=== PATIENT | male | born 1995 | race Caucasian/White ===

== ENCOUNTER 2020-04-08 17:20 | Emergency (ER) | payer SELFPAY ==
[~2020-04-08] VITALS: Ht 170.2 cm; Wt 60.0 kg
--- NOTE | 2020-04-08 17:21 | NUR ---
CLEANER AND POLISHER: PER [facility] PD WHO BROUGHT PT IN, PT IS UNDER CONSERVATORSHIP WITH [facility] SO HE CANNOT MAKE DECISIONS ON HIS OWN AND HAS A HX OF ESCAPING FROM MENTAL HEALTH FACILITIES. CLEANER AND POLISHER SPOKE WITH INVENTORY CONTROL ANALYST MAKENZIE GOMEZ (c) [phone] REGARDING PATIENT AND ARRANGING TRANSPORTATION. PER DET. GOMEZ HE IS ATTEMPTING TO ARRANGE PRIORITY TRANSPORT FOR PT TOMORROW MORNING. HE WILL KEEP US POSTED OF ARRANGEMENTS.
--- NOTE | 2020-04-08 17:40 | NUR ---
THIS IS A 24 YO M [facility] OFFICE. PER PD, PT IS A MISSING PERSON IN [facility]. [facility] HAS CONSERVATIVESHIP OF PT. PT HAS ELOPED FROM MULTIPLE MENTAL HEALTH FACILITIES. DIRECTOR CORPORATE COMMUNICATIONS MAKENZIE GOMEZ [phone] IS ARRANGING TRANSPORT TO BRING PT BACK TO [facility] FROM THIS FACILITY. PT HAS NO COMPLAINTS AT THIS TIME. HX: SCHITZOPHRENIA. BELONGINGS REMOVED FROM ROOM AND PLACED IN SAFE KEEPING. GARAGE DOORS DOWN, SITTER OUTSIDE ROOM FOR SAFETY. PT AMBULATED TO THE BR W/ A STEADY GAIT, PT URINATED IN TOILET AND TRIED TO SCOOP SAMPLE OUT, PT EDUCATED ON PROPER TECHNIQUE FOR URINE COLLECTION. PT RESTING ON GURNEY, RESP EVEN AND UNLABORED, HOLLIE.
--- NOTE | 2020-04-08 17:48 | NUR ---
LAB IN ROOM.
--- NOTE | 2020-04-08 17:53 | NUR ---
PT REQUESTING IMMEDIATE SHOWER. PT PROVIDED URINAL FOR SAMPLE. INFORMED IT IS THE LAST TEST WE NEED BEFORE WE CAN SET HIM UP FOR A SHOWER.
[2020-04-08 17:55] LABS: BASOPHILS # (AUTO) 0.01 x10^3/uL (0-0.1); BASOPHILS % (AUTO) 0 % (0-1); EOSINOPHILS # (AUTO) 0.07 x10^3/uL (0-0.4); EOSINOPHILS % (AUTO) 1 % (1-7); LYMPHOCYTES # (AUTO) 1.91 x10^3/uL (1-3.4); LYMPHOCYTES % (AUTO) 15 % (22-44); MD NO; MEAN CORPUSCULAR HEMOGLOBIN 29.8 pg (27.5-34.5); MEAN CORPUSCULAR HGB CONC 33.6 g/dL (33.2-36.2); MEAN CORPUSCULAR VOLUME 88.6 fL (81-97); MEAN PLATELET VOLUME 6.7 fL (7.4-10.4); MONOCYTES # (AUTO) 0.85 x10^3/uL (0.2-0.8); MONOCYTES % (AUTO) 7 % (2-9); NEUTROPHILS # (AUTO) 9.69 x10^3/uL (1.8-6.8); NEUTROPHILS % (AUTO) 77 % (42-75); PLATELET COUNT 311 x10^3/uL (130-400); RED BLOOD COUNT 4.97 x10^6/uL (4.38-5.82)
--- NOTE | 2020-04-08 18:03 | NUR ---
URINE COLLECTED AND SENT TO LAB.
[2020-04-08 18:04] LABS: ANION GAP 6 mmol/L (5-15); CALCIUM 8.9 mg/dL (8.5-10.1); CHLORIDE 109 mmol/L (98-107); CREATININE 0.93 mg/dL (0.7-1.3)
[2020-04-08 18:05] LABS: ALBUMIN 3.8 g/dL (3.4-5.0)
--- NOTE | 2020-04-08 18:05 | NUR ---
UPDATED ON APPEARANCE OF PTS URINE (CLOUDY) AND WHITE COUNT, OK TO ADD ON UA.
[2020-04-08 18:06] LABS: SALICYLATE LEVEL < 1.7 mg/dL (2.8-20.0)
--- NOTE | 2020-04-08 18:07 | NUR ---
PT. WAS INCREADIBLY IRRITATED AND RUDE.
[2020-04-08 18:25] LABS: AMPHETAMINE SCREEN, URINE Positive (Negative); BARBITURATE SCREEN, URINE Negative (Negative); CANNABINOID SCREEN, URINE Negative (Negative); COCAINE SCREEN, URINE Negative (Negative); METHADONE SCREEN, URINE Negative (Negative)
[2020-04-08 18:27] LABS: BENZODIAZEPINE SCREEN, URINE Negative (Negative); OPIATE SCREEN, URINE Negative (Negative)
--- NOTE | 2020-04-08 18:35 | NUR ---
PT BECOMING INCREASINGLY AGITATED, YELLING AND DEMANDING SHOWER STATING THAT THIS IS TAKING TO LONG AND ASKING WHEN HE WILL BE EVALUATED. ED PROCESS EXPLAINED TO PT. PT EDUCATED THAT WE DO NOT HAVE THE STAFF AVAILABLE AND IT WOULD BE A FEW HOURS BEFORE HE IS ABLE TO SHOWER. SECURITY ARRIVED AND TALKED PT BACK O[facility]O [facility]. ASKED PT IF HE WOULD LIKE MEDICATION FOR ANXIETY. PT DENIES. PT REQUESTING LIGHTS OFF AND PILLOW. REQUESTED PROVIDED. PT RESTING ON [facility] W/ SITTER OUTSIDE ROOM AND GARAGE DOORS DOWN FOR SAFETY.
--- NOTE | 2020-04-08 18:58 | NUR ---
LAB CALLED TO INFORM THEM OF UA ADD ON.
[2020-04-08] MEDS ORDERED: LORazepam 1MG TABLET ONE (19:00)
[2020-04-08] MEDS ORDERED: LORazepam 1MG TABLET PO ONE (19:00)
[2020-04-08 19:08] LABS: MICROSCOPIC INDICATED
--- NOTE | 2020-04-08 19:19 | NUR ---
FIRST CONTACT WITH PT. HE STATES HE DOES NOT WANT TO BE HERE. HE IS FRUSTRATED WITH OUR PROCESSES AND VOICES HIS DISAPPROVAL THROUGH YELLING AND CRYING. I ENCOURAGED PT TO KEEP HIS VOICE DOWN AND AFTER TALKING WITH HIM AT LENGTH ABOUT THE FACT THAT HE WILL BE HERE ALL NIGHT, HE AGREED. PT IS VERY CONCERNED THAT HE NEEDS A SHOWER AND I AGREED TO ARRANGE ONE FOR HIM. PT RELUCTANTLY AGREEABLE. PT PROVIDED ATIVAN AND A MEAL.
--- NOTE | 2020-04-08 20:55 | NUR ---
THROUGHPUT RN: PACKET SENT TO [facility]. CONFIRMED WITH NOVA IN INTAKE THAT HE RECEIVED ALL REQUIRED INFO. PER NOVA, THEY ARE CUREENTLY AT COMPACITY AND WILL NOT BE ACCEPTING ANY PTS TONIGHT. CALL PLACED TO [facility], CIVIL DIVISION COMMANDER DEPUTY SHERIFF STATES THEY WILL DECLINE S/T SELF-PAY.
--- NOTE | 2020-04-08 23:17 | NUR ---
PT RESTING ON GURNEY, RESPIRATIONS EVEN AND UNLABORED. SITTER AT DOORWAY FOR FREQUENT CHECKS.
--- NOTE | 2020-04-09 01:00 | NUR ---
REPORT TO JORDAN REYES
--- NOTE | 2020-04-09 02:25 | NUR ---
pt resting in bed, with pt room si secure with sitter at pt door. pt has no needs at this time, staff writer will continue to monitor pt.
--- NOTE | 2020-04-09 03:42 | NUR ---
pt requested milk and juice. pt was provided both.
--- NOTE | 2020-04-09 04:48 | NUR ---
pt resting in bed, with pt room si secure with sitter at pt door. pt has no needs at this time, investigative writer will continue to monitor pt.
--- NOTE | 2020-04-09 07:24 | NUR ---
PT RESTING CALMLY IN BED AT THIS TIME. NO STATED NEEDS. SITTER AT DOOR.
--- NOTE | 2020-04-09 08:46 | NUR ---
PT GIVEN AM MEAL TRAY. PT ABLE TO AMBULATE STEADILY TO BATHROOM. PT UPSET ABOUT CURRENT PLAN OF GOING BACK TO [facility]. PT STATED HE IS NO LONGER A MISSING PERSON AND ASKING THIS RN TO TELL THE OFFICERS THERE HE IS NO LONGER MISSING. PT MADE AWARE, HIS TRANSPORT IS ALREADY BEING ARRAINGED, THAT PERHAPS THE PSYCH BEHAVIOR ANALYST WHO WILL BE IN LATER TODAY MAY BE ABLE TO CLARIFY THIS SITUATION. SITTER AT DOOR FOR OBS. WILL CONTINUE TO MONITOR.
[2020-04-09 08:56] VITALS: BP 122/85
--- NOTE | 2020-04-09 09:14 | NUR ---
CHART SNATCHER: PT RAN AROUND ED DEPARTMENT, AND OUT THE DOOR.
--- NOTE | 2020-04-09 09:21 | NUR ---
PT HAS RAN OUT OF EMERGENCY DEPARTMENT IN [facility]. MARYANAD CALLED AND GIVEN PT INFO. STATED THEY WILL SEND AN OFFICER TO LOOK FOR PT AND BRING HIM BACK.
== END 2020-04-09 09:49 ==
LOC: ED 18:54
DX: F20.89 Other schizophrenia (principal); F15.10 Other stimulant abuse, uncomplicated; D72.829 Elevated white blood cell count, unspecified
CPT/HCPCS: 36415; 80048; 80307; 81001; 82040; 85025; 99284

== ENCOUNTER 2020-10-17 11:39 | Emergency (ER) | payer MEDICAID ==
[~2020-10-17] VITALS: Ht 167.6 cm; Wt 66.2 kg
[2020-10-17 11:53] VITALS: BP 130/80
--- NOTE | 2020-10-17 12:20 | NUR ---
TASK RN: PT AMBULATORY TO ROOM 16 W/ C/O NECK PAIN AND FEELING "GROSS STUFF" IN HIS HEAD AND THAT HIS NECK CRACKS. PT NOTED TO BE ANXIOUS. PT RESTING ON [place]. HOLLIE. MONITORS APPLIED. PT REQUESTING A DR SEE HIM NOW. EDUCATED ON THE ED PROCESS. PT VERBALIZES UNDERSTANDING.
--- NOTE | 2020-10-17 12:23 | NUR ---
TASK RN: REPORT GIVEN TO JORDAN BARKER.
--- NOTE | 2020-10-17 12:40 | NUR ---
PT DID NOT WANT TO STAY AND BE SEEN. WAS FOUND IN ANOTHER ROOM AND ELOPED BEFORE DISCHARGE. HE WAS AMBULATORY WITH A STABLE GAIT.
== END 2020-10-17 12:42 | disposition left against medical advice (07) ==
LOC: ED 12:15
DX: F20.1 Disorganized schizophrenia (principal); M54.2 Cervicalgia; F17.200 Nicotine dependence, unspecified, uncomplicated
CPT/HCPCS: 99281

== ENCOUNTER 2020-11-04 17:28 | Emergency (ER) | payer MEDICAID ==
[~2020-11-04] VITALS: Ht 167.6 cm; Wt 64.5 kg
[2020-11-04 17:32] VITALS: BP 110/83
--- NOTE | 2020-11-04 17:57 | NUR ---
PT STATES HE'S SPINE IS MOVING TOO MUCH, STATES HE NEEDS PILLS TO CALM DOWN. PT AMITS TO METH USE YESTERDAY.
== END 2020-11-04 18:49 | disposition left against medical advice (07) ==
LOC: ED 18:41
DX: F10.129 Alcohol abuse with intoxication, unspecified (principal); M54.2 Cervicalgia; F17.210 Nicotine dependence, cigarettes, uncomplicated; Y90.0 Blood alcohol level of less than 20 mg/100 ml
CPT/HCPCS: 99281

== ENCOUNTER 2020-11-23 23:46 | Emergency (ER) | payer MEDICAID ==
[~2020-11-23] VITALS: Ht 167.6 cm; Wt 70.0 kg
[2020-11-23 23:56] VITALS: BP 129/90
[2020-11-24] MEDS ORDERED: LORazepam 1MG TABLET PO ONE
--- NOTE | 2020-11-24 00:03 | NUR ---
PT TO XRAY
[2020-11-24] MEDS ORDERED: LORazepam 1MG TABLET ONE (00:16)
--- NOTE | 2020-11-24 00:45 | NUR ---
Patient given discharge instructions and they have confirmed that they understand the instructions. Patient ambulatory with steady gait.
--- NOTE | 2020-11-24 00:50 | NUR ---
PT REFUSING TO LEAVE ROOM. SECURITY CALLED TO ASSIST WITH DISCHARGE
== END 2020-11-24 00:53 | disposition home or self-care (01) ==
LOC: ED 11-24 00:17
DX: M54.2 Cervicalgia (principal); F15.150 Other stimulant abuse with stimulant-induced psychotic disorder with delusions; R00.0 Tachycardia, unspecified
CPT/HCPCS: 72050; 99283

== ENCOUNTER 2020-11-28 21:18 | Emergency (ER) | payer MEDICAID ==
[~2020-11-28] VITALS: Ht 167.6 cm; Wt 63.3 kg
[2020-11-28] MEDS ORDERED: SODIUM CHLORIDE 0.9% 1,000ML IVBOLUS ONE ×2 (22:00→23:30)
[2020-11-28] MEDS ORDERED: LORazepam 2 MG/ML, 1ML IVPush ONE (22:00)
[2020-11-28 22:14] LABS: BASOPHILS % (AUTO) 0 % (0-1); EOSINOPHILS % (AUTO) 0 % (1-7); LYMPHOCYTES % (AUTO) 9 % (22-44); MEAN CORPUSCULAR HEMOGLOBIN 29.6 pg (27.5-34.5); MEAN CORPUSCULAR HGB CONC 34.8 g/dL (33.2-36.2); MEAN PLATELET VOLUME 6.4 fL (7.4-10.4); MONOCYTES % (AUTO) 6 % (2-9); NEUTROPHILS % (AUTO) 85 % (42-75); PLATELET COUNT 264 x10^3/uL (130-400); RED BLOOD COUNT 5.09 x10^6/uL (4.38-5.82); RED CELL DISTRIBUTION WIDTH 13.1 % (9.4-14.8)
[2020-11-28 22:19] LABS: ALBUMIN 3.9 g/dL (3.4-5.0); ANION GAP 8 mmol/L (5-15); CALCIUM 8.7 mg/dL (8.5-10.1); CHLORIDE 108 mmol/L (98-107); CREATININE 0.98 mg/dL (0.7-1.3)
[2020-11-28 22:23] LABS: TROPONIN I < 0.015 ng/mL (0.000-0.045)
[2020-11-28] MEDS ORDERED: LORazepam 2 MG/ML, 1ML ONE (22:26)
--- NOTE | 2020-11-28 22:47 | NUR ---
PT AMBULATES TO HOSPITAL. PT STATES HE IS HERE BECAUSE HE IS HAVING NECK SPASMS AND NEEDS "RELAXATION PILL". STATES HE HAS FELT ANXIOUS AND HAD NECK PAIN SINCE SMOKING METH APPROXIMATELY AT 1800. PT RESTING IN [facility], MONITORING IN PLACE, HOLLIE AT THIS TIME, PER PT NO NEEDS AT THIS TIME, WCTM.
[2020-11-28 23:12] LABS: MD SCAN
[2020-11-28 23:15] VITALS: BP 128/67
--- NOTE | 2020-11-28 23:52 | NUR ---
PT RIPPED OUT HIS IV, STATES "I DON'T NEED IT I FEEL MUCH BETTER".
--- NOTE | 2020-11-28 23:56 | NUR ---
Discharge instructions given. All questions and concerns addressed. Patient ambulatory with a steady gait. Belongings with patient.
== END 2020-11-29 00:03 | disposition home or self-care (01) ==
LOC: ED 23:53
DX: S16.1XXA Strain of muscle, fascia and tendon at neck level, initial encounter (principal); F15.129 Other stimulant abuse with intoxication, unspecified; M54.2 Cervicalgia; X58.XXXA Exposure to other specified factors, initial encounter; Y93.89 Activity, other specified; Y92.89 Other specified places as the place of occurrence of the external cause; Y99.8 Other external cause status
CPT/HCPCS: 36415; 71045; 80048; 82040; 84484; 85025; 93005; 96361; 96374; 99285; J2060; J7030

== ENCOUNTER 2020-11-30 18:20 | Emergency (ER) | payer MEDICAID ==
[~2020-11-30] VITALS: Ht 170.2 cm; Wt 61.5 kg
[2020-11-30] MEDS ORDERED: LORazepam 1MG TABLET ONE (18:44)
--- NOTE | 2020-11-30 18:50 | NUR ---
Patient found sitting on bed in gown with hydrogen peroxide wipes cleaning his penis and feet. MD at bedside for exam.
--- NOTE | 2020-11-30 18:54 | NUR ---
Report given to JORDAN Buchanan and care transferred.
--- NOTE | 2020-11-30 18:56 | NUR ---
REPORT FROM KAYLA ORTEGA. PT MEDICATED AND RESTING WITH NO NEEDS AT TIS TIME. CALL LIGHT IN REACH
[2020-11-30] MEDS ORDERED: LORazepam 1MG TABLET PO ONE (19:00)
--- NOTE | 2020-11-30 19:32 | NUR ---
PTS VITALS IMPROVED. PT KEEPS GETTING OUT OF BED AND WASHING IN SINK. PT GIVEN CLOTHES AND A SNACK. UPON GIVING DISCHARGE INSTRUCTIONS PT IS REQUESTING TO LAY DOWN FOR A BIT. PT ADVISED THAT THIS RN HAS REQUESTED REPEATEDLY THAT HE STAY IN THE GURNEY AND ATTACHED TO MONITORS BUT PT REFUSED TO DO SO. PT GETTING DRESSED AND WILL BE WALKED TO DISCHARGE DESK.
--- NOTE | 2020-11-30 19:49 | NUR ---
PT WAS WALKING OUT OF ROOM. PT REFUSED TO WEAR HIS SHOES. PT GIVEN HIS SHOES TO TAKE WITH OTHER BELONGINGS ON WAY TO DISCHARGE DESK. PT ATTEMPTS TO WANDER AND WAS REDIRECTED BY RN. SECURITY CALLED TO ASSIST WITH ESCORT
[2020-11-30 19:51] VITALS: BP 131/82
== END 2020-11-30 19:53 | disposition home or self-care (01) ==
LOC: ED 19:17
DX: F41.1 Generalized anxiety disorder (principal); F15.129 Other stimulant abuse with intoxication, unspecified; F20.9 Schizophrenia, unspecified; R00.0 Tachycardia, unspecified; F17.210 Nicotine dependence, cigarettes, uncomplicated; Z59.0 Homelessness
CPT/HCPCS: 99283

== ENCOUNTER 2020-12-01 04:49 | Emergency (ER) | payer MEDICAID ==
[~2020-12-01] VITALS: Ht 167.6 cm; Wt 62.3 kg
[2020-12-01 04:53] VITALS: BP 120/86
== END 2020-12-01 05:33 | disposition home or self-care (01) ==
LOC: ED 05:16
DX: F41.1 Generalized anxiety disorder (principal); F15.129 Other stimulant abuse with intoxication, unspecified; Z72.9 Problem related to lifestyle, unspecified
CPT/HCPCS: 93005; 99281; 99283

== ENCOUNTER 2020-12-01 18:47 | Emergency (ER) | payer MEDICAID ==
[~2020-12-01] VITALS: Ht 172.7 cm; Wt 63.3 kg
[2020-12-01 18:48] VITALS: BP 111/79
== END 2020-12-01 19:31 | disposition left against medical advice (07) ==
LOC: ED 19:25
DX: R07.89 Other chest pain (principal); Z53.21 Procedure and treatment not carried out due to patient leaving prior to being seen by health care provider
CPT/HCPCS: 93005

== ENCOUNTER 2020-12-02 07:59 | Emergency (ER) | payer MEDICAID ==
[~2020-12-02] VITALS: Ht 167.6 cm; Wt 62.1 kg
--- NOTE | 2020-12-02 08:13 | NUR ---
patient arrives with pain and twitching in his neck that began a few days ago
[2020-12-02] MEDS ORDERED: IBUPROFEN 600 MG TABLET PO ONE (08:30)
[2020-12-02] MEDS ORDERED: METHOCARBAMOL 750 MG TABLET PO ONE (08:30)
[2020-12-02] MEDS ORDERED: METHOCARBAMOL 750 MG TABLET ONE (08:33)
[2020-12-02] MEDS ORDERED: IBUPROFEN 600 MG TABLET ONE (08:33)
--- NOTE | 2020-12-02 08:41 | NUR ---
medicated patient. requested milk, got it. in bed resting quietly.
--- NOTE | 2020-12-02 09:22 | NUR ---
neck still sore, medicine helps some he reports. states just wants to nap
[2020-12-02 09:54] VITALS: BP 118/78
== END 2020-12-02 09:57 | disposition home or self-care (01) ==
LOC: ED 08:40
DX: S16.1XXA Strain of muscle, fascia and tendon at neck level, initial encounter (principal); F17.200 Nicotine dependence, unspecified, uncomplicated; Z59.0 Homelessness; X58.XXXA Exposure to other specified factors, initial encounter; Y93.89 Activity, other specified; Y92.89 Other specified places as the place of occurrence of the external cause; Y99.8 Other external cause status
CPT/HCPCS: 99283

== ENCOUNTER 2020-12-02 20:05 | Emergency (ER) | payer MEDICAID ==
[~2020-12-02] VITALS: Ht 167.6 cm; Wt 64.0 kg
[2020-12-02 20:11] VITALS: BP 117/84
[2020-12-02] MEDS ORDERED: ACETAMINOPHEN 325 MG TABLET ONE (20:45)
[2020-12-02] MEDS ORDERED: ACETAMINOPHEN 325 MG TABLET PO ONE (21:00)
== END 2020-12-02 20:59 | disposition home or self-care (01) ==
LOC: ED 20:53
DX: F15.10 Other stimulant abuse, uncomplicated (principal); M54.5 Low back pain; G89.29 Other chronic pain
CPT/HCPCS: 99282

== ENCOUNTER 2020-12-05 14:23 | Emergency (ER) | payer MEDICAID ==
[~2020-12-05] VITALS: Ht 167.6 cm; Wt 63.1 kg
[2020-12-05 14:31] VITALS: BP 112/74
[2020-12-05 15:30] LABS: BASOPHILS % (AUTO) 1 % (0-1); EOSINOPHILS % (AUTO) 0 % (1-7); LYMPHOCYTES % (AUTO) 11 % (22-44); MEAN CORPUSCULAR HEMOGLOBIN 29.8 pg (27.5-34.5); MEAN CORPUSCULAR HGB CONC 34.8 g/dL (33.2-36.2); MEAN PLATELET VOLUME 6.5 fL (7.4-10.4); MONOCYTES % (AUTO) 7 % (2-9); NEUTROPHILS % (AUTO) 82 % (42-75); PLATELET COUNT 276 x10^3/uL (130-400); RED BLOOD COUNT 4.97 x10^6/uL (4.38-5.82); RED CELL DISTRIBUTION WIDTH 13.1 % (9.4-14.8)
--- NOTE | 2020-12-05 15:30 | NUR ---
PT IS SLEEPING ON [employer]. PT HAS CO NECK PAIN. NEURO INTACT. NO N/T
[2020-12-05 15:34] LABS: MD NO
[2020-12-05 15:40] LABS: ALANINE AMINOTRANSFERASE 22 U/L (12-78); ALBUMIN 3.6 g/dL (3.4-5.0); ANION GAP 7 mmol/L (5-15); CALCIUM 8.6 mg/dL (8.5-10.1); CHLORIDE 104 mmol/L (98-107); CREATININE 0.84 mg/dL (0.7-1.3)
[2020-12-05 15:43] LABS: ALKALINE PHOSPHATASE 84 U/L (45-117); BILIRUBIN,TOTAL 0.3 mg/dL (0.2-1.0); TOTAL PROTEIN 6.8 g/dL (6.4-8.2)
[2020-12-05] MEDS ORDERED: IBUPROFEN 600 MG TABLET PO ONE (16:00)
== END 2020-12-05 16:58 | disposition home or self-care (01) ==
LOC: ED 15:34
DX: G89.29 Other chronic pain (principal); M54.2 Cervicalgia; R51.9 Headache, unspecified; F17.200 Nicotine dependence, unspecified, uncomplicated
CPT/HCPCS: 36415; 80053; 85025; 99283; 99285

== ENCOUNTER 2020-12-10 21:03 | Emergency (ER) | payer MEDICAID ==
[~2020-12-10] VITALS: Ht 167.6 cm; Wt 60.4 kg
[2020-12-10 21:36] VITALS: BP 140/88
[2020-12-10] MEDS ORDERED: ACETAMINOPHEN 325 MG TABLET ONE (23:30)
[2020-12-10] MEDS ORDERED: ACETAMINOPHEN 325 MG TABLET PO ONE (23:30)
--- NOTE | 2020-12-10 23:33 | NUR ---
Medicated pt refusing to leave states "i want a bed i need to lay down" security called to escort out.
== END 2020-12-10 23:36 | disposition home or self-care (01) ==
LOC: ED 22:00
DX: S16.1XXA Strain of muscle, fascia and tendon at neck level, initial encounter (principal); F15.10 Other stimulant abuse, uncomplicated; Z72.9 Problem related to lifestyle, unspecified; X58.XXXA Exposure to other specified factors, initial encounter; Y93.89 Activity, other specified; Y92.89 Other specified places as the place of occurrence of the external cause; Y99.8 Other external cause status
CPT/HCPCS: 99283; Q0177

== ENCOUNTER 2020-12-30 17:22 | Emergency (ER) | payer MEDICAID ==
[~2020-12-30] VITALS: Ht 167.6 cm; Wt 63.6 kg
[2020-12-30] MEDS ORDERED: SODIUM CHLORIDE 0.9% 1,000ML IVBOLUS ONE (18:00)
[2020-12-30] MEDS ORDERED: LORazepam 2 MG/ML, 1ML IVPush ONE (18:00)
[2020-12-30] MEDS ORDERED: SODIUM CHLORIDE FLUSH 10ML SYR IVF ONE (18:00)
[2020-12-30] MEDS ORDERED: LORazepam 2 MG/ML, 1ML ONE (18:06)
[2020-12-30 18:35] LABS: MEAN PLATELET VOLUME 6.7 fL (7.4-10.4); PLATELET COUNT 308 x10^3/uL (130-400); RED BLOOD COUNT 5.22 x10^6/uL (4.38-5.82); RED CELL DISTRIBUTION WIDTH 14.4 % (9.4-14.8)
[2020-12-30 18:38] LABS: ALBUMIN 4.4 g/dL (3.4-5.0); ANION GAP 7 mmol/L (5-15); CALCIUM 9.4 mg/dL (8.5-10.1); CHLORIDE 113 mmol/L (98-107); CREATININE 0.94 mg/dL (0.7-1.3)
[2020-12-30] MEDS ORDERED: SODIUM CHLORIDE 0.9% 1,000 ML IV SCH (18:58)
[2020-12-30 19:14] LABS: HCT (SEDRATE) 46.1 % (39.2-51.8)
[2020-12-30 19:17] LABS: MD YES
[2020-12-30 19:21] LABS: <PLATELET ESTIMATE> ADEQUATE; <PLT MORPHOLOGY> NORMAL PLT MORPH; <RBC MORPHOLOGY> NORMAL; EOS#(MANUAL) 0.16 x10^3/uL (0.0-0.4); EOS% (MANUAL) 1 % (1-7); LYMPH#(MANUAL) 2.07 x10^3/uL (1-3.4); LYMPHS% (MANUAL) 13 % (22-44); MONOS#(MANUAL) 1.11 x10^3/uL (0.3-2.7); MONOS% (MANUAL) 7 % (2-9); REACTIVE LYMPHS # (MANUAL) 0.16 x10^3/uL (0-0); REACTIVE LYMPHS % (MANUAL) 1 % (0-0); SEGS% (MANUAL) 78 % (42-75)
[2020-12-30 19:29] VITALS: BP 105/62
--- NOTE | 2020-12-30 20:07 | NUR ---
PT OBSERVED LEAVING ROOM. PT NOTED TO PULL OUT HIS IV AND STATING THAT HE DID NOT WANT TO BE HERE ANYMORE. BROUGHT PT BCK TO ROOM TO BANDAGE UP HIS HARM, HAD PT SIGN AMA RELEASE FORM AND EXITED PT OUT OF FACILITY.
[2020-12-30 20:22] LABS: AMPHETAMINE SCREEN, URINE Positive (Negative); BARBITURATE SCREEN, URINE Negative (Negative); BENZODIAZEPINE SCREEN, URINE Negative (Negative); CANNABINOID SCREEN, URINE Negative (Negative); COCAINE SCREEN, URINE Negative (Negative); METHADONE SCREEN, URINE Negative (Negative); OPIATE SCREEN, URINE Negative (Negative)
[2020-12-30] MEDS ORDERED: LORazepam 1MG TABLET PO ONE (20:30)
== END 2020-12-30 20:39 | disposition left against medical advice (07) ==
LOC: ED 18:07
DX: M54.2 Cervicalgia (principal)
CPT/HCPCS: 36415; 72050; 80048; 80307; 80320; 82040; 85025; 85651; 96361; 96374; 99285; J2060; J7030; G0480

== ENCOUNTER 2020-12-31 12:04 | Emergency (ER) | payer MEDICAID ==
[~2020-12-31] VITALS: Ht 167.6 cm; Wt 64.1 kg
[2020-12-31 12:07] VITALS: BP 118/84
== END 2020-12-31 13:15 ==
LOC: ED 13:03
DX: M54.2 Cervicalgia (principal); F17.200 Nicotine dependence, unspecified, uncomplicated
CPT/HCPCS: 99281

== ENCOUNTER 2020-12-31 17:07 | Emergency (ER) | payer MEDICAID ==
[~2020-12-31] VITALS: Ht 167.6 cm; Wt 62.3 kg
[2020-12-31 17:24] VITALS: BP 131/72
--- NOTE | 2020-12-31 17:50 | NUR ---
PT AMBULATED TO ROOM FROM TRIAGE. PT STATED THAT HIS "NECK HURTS AND HE NEEDS PAIN MEDICINE." PT REFUSES TO ANSWER ANY OTHER QUESTIONS AND JUST KEEPS SAYING "I NEED PAIN MEDICINE."
[2020-12-31] MEDS ORDERED: DIAZEPAM 5 MG/ML, 2ML ONE (18:10)
[2020-12-31] MEDS ORDERED: DIAZEPAM 5 MG/ML, 2ML IM ONE (18:30)
--- NOTE | 2020-12-31 18:47 | NUR ---
PT RESTING IN [facility]. NAD NOTED. RESPIRATIONS WNL. CALL LIGHT WITHIN REACH.
--- NOTE | 2020-12-31 19:11 | NUR ---
DISCHARGE INSTRUCTIONS REVIEWED WITH PT. PT REQUESTING TO STAY THE NIGHT IN THE ER. PT EDUCATED THAT HE CANNOT STAY. PT AMBULATED OUT OF ER.
== END 2020-12-31 19:15 | disposition home or self-care (01) ==
LOC: ED 17:53
DX: S16.1XXA Strain of muscle, fascia and tendon at neck level, initial encounter (principal); F15.129 Other stimulant abuse with intoxication, unspecified; F17.210 Nicotine dependence, cigarettes, uncomplicated; X58.XXXA Exposure to other specified factors, initial encounter; Y93.89 Activity, other specified; Y92.89 Other specified places as the place of occurrence of the external cause; Y99.8 Other external cause status
CPT/HCPCS: 96372; 99283; 99406; J3360

== ENCOUNTER 2021-01-01 16:35 | Emergency (ER) | payer MEDICAID ==
[~2021-01-01] VITALS: Ht 167.6 cm; Wt 62.4 kg
[2021-01-01 16:38] VITALS: BP 130/77
--- NOTE | 2021-01-01 18:39 | NUR ---
SCIENTIFIC INFORMATICS LEADER: PT TO ROOM FROM LOBBY AT THIS TIME
--- NOTE | 2021-01-01 20:06 | NUR ---
WHEN THIS RN ENTERED ROOM FOR RECHECK OF PT, PT NOT FOUND IN ROOM. PT ELOPED FROM DEPARTMENT, AMBULATORY WITH STEADY GAIT.
== END 2021-01-01 20:10 | disposition left against medical advice (07) ==
LOC: ED 18:46
DX: M54.2 Cervicalgia (principal); F15.10 Other stimulant abuse, uncomplicated
CPT/HCPCS: 99281

== ENCOUNTER 2021-01-01 21:48 | Emergency (ER) | payer MEDICAID | END 2021-01-01 21:55 | LOC: ED 21:49 | DX: M54.9 Dorsalgia, unspecified (principal); Z53.21 Procedure and treatment not carried out due to patient leaving prior to being seen by health care provider ==

== ENCOUNTER 2021-01-04 09:28 | Emergency (ER) | payer MEDICAID ==
[~2021-01-04] VITALS: Ht 167.6 cm; Wt 61.9 kg
--- NOTE | 2021-01-04 10:19 | NUR ---
nanoscience technician completed. States MD was just in for exam. No orders present as yet. Pt states back is just shaking too much and has been doing so for an hour. Strong odor of ETOH, but pt denies drinking today.
[2021-01-04] MEDS ORDERED: KETOROLAC 30 MG/1 ML ONE (10:27)
[2021-01-04] MEDS ORDERED: DIAZEPAM 5 MG TABLET ONE (10:27)
[2021-01-04] MEDS ORDERED: DIAZEPAM 5 MG TABLET PO ONE (10:30)
[2021-01-04] MEDS ORDERED: KETOROLAC 30 MG/1 ML IM ONE (10:30)
--- NOTE | 2021-01-04 11:20 | NUR ---
Pt refusing to take his prescription or d/c paperwork and refusing to order picker/assembler his 11 cents change from the bed. Pt asked multiple times to apply face mask while walking down the motta and refusing.
[2021-01-04 11:23] VITALS: BP 120/80
== END 2021-01-04 11:25 | disposition home or self-care (01) ==
LOC: ED 10:25
DX: G24.3 Spasmodic torticollis (principal); R00.0 Tachycardia, unspecified; Z59.0 Homelessness
CPT/HCPCS: 96372; 99283; J1885

== ENCOUNTER 2021-01-04 18:20 | Emergency (ER) | payer MEDICAID ==
[~2021-01-04] VITALS: Ht 167.6 cm; Wt 61.2 kg
[2021-01-04 18:27] VITALS: BP 136/102
--- NOTE | 2021-01-04 19:16 | NUR ---
Pt ambulatory to room from triage. Pt was d/c'd from this department by this RN earlier today and refused to take his paperwork with prescription for medication for muscle spasms at that time.
--- NOTE | 2021-01-04 19:21 | NUR ---
Pt found throwing his sweatshirt into room across the hallway. When asked to please keep his belongings in his own room, pt states he has to have this particular item of clothing kept away from him but could not state why. Sweatshirt bagged, labeled and placed in locked psych locker across from room 1. Pt reports continued back problems without acute change from initial assessment on previous visist today. Pt moving steadily on feet with full ROM of all extremities noted and attempting to clean his skin with hydrogen peroxide wipes. Pt asked not to use those on his skin and pt refused to stop at this time. Wipes removed from room for pt safety.
[2021-01-04] MEDS ORDERED: DIPHENHYDRAMINE 25 MG CAPSULE PO ONE (19:30)
[2021-01-04] MEDS ORDERED: DIPHENHYDRAMINE 25 MG CAPSULE ONE (19:34)
--- NOTE | 2021-01-04 19:57 | NUR ---
Pt offered his sweatshirt back multiple times and repeated stated he did not want it back and to throw it out. Left in locker in case pt returns and pt notified of this. Pt refused to wear his mask to ambulate through the hallway and refused to take his printed d/c sheet as well. Pt walked to d/c desk for check out with steady gait noted.
== END 2021-01-04 19:59 | disposition home or self-care (01) ==
LOC: ED 19:51
DX: F15.10 Other stimulant abuse, uncomplicated (principal); R45.1 Restlessness and agitation; R00.0 Tachycardia, unspecified
CPT/HCPCS: 99283; Q0163

== ENCOUNTER 2021-01-07 12:14 | Emergency (ER) | payer MEDICAID ==
[~2021-01-07] VITALS: Ht 185.4 cm; Wt 62.1 kg
--- NOTE | 2021-01-07 12:40 | NUR ---
PT AMBULATED TO ROOM FROM TRIAGE. PT STATED THAT HE HAS "HEAD AND NECK PROBLEMS." WHEN RN WALKED INTO ROOM, PT WAS USING HYDROGEN PEROXIDE WIPES TO WASH HIS HAIR AND NECK. WIPES REMOVED FROM ROOM. PT THEN STARTED TAKING SOAP AND WAS RUBBING IT ON TO HEAD. PT ADMITTED TO USING METH THIS MORNING.
--- NOTE | 2021-01-07 13:42 | NUR ---
PT AGITATED, STATING HE NEEDS "CALMING MEDICINE."
[2021-01-07] MEDS ORDERED: LORazepam 1MG TABLET ONE (14:00)
[2021-01-07] MEDS ORDERED: LORazepam 1MG TABLET PO ONE (14:00)
[2021-01-07 15:02] VITALS: BP 122/58
--- NOTE | 2021-01-07 15:34 | NUR ---
DISCHARGE INSTRUCTIONS REVIEWED WITH PT. ALL QUESTIONS ANSWERED AT THIS TIME.
== END 2021-01-07 15:36 | disposition home or self-care (01) ==
LOC: ED 14:28
DX: M54.2 Cervicalgia (principal); F15.10 Other stimulant abuse, uncomplicated
CPT/HCPCS: 99283

== ENCOUNTER 2021-01-08 13:04 | Emergency (ER) | payer MEDICAID ==
[~2021-01-08] VITALS: Ht 167.6 cm; Wt 61.6 kg
[2021-01-08 13:05] VITALS: BP 117/58
== END 2021-01-08 14:43 | disposition home or self-care (01) ==
LOC: ED 13:05
DX: F15.10 Other stimulant abuse, uncomplicated (principal); F41.1 Generalized anxiety disorder; Z72.9 Problem related to lifestyle, unspecified
CPT/HCPCS: 99283; Q0177

== ENCOUNTER 2021-01-10 18:45 | Emergency (ER) | payer MEDICAID ==
[~2021-01-10] VITALS: Ht 167.6 cm; Wt 61.0 kg
[2021-01-10 18:51] VITALS: BP 143/83
--- NOTE | 2021-01-10 19:08 | NUR ---
PT HERE FOR NECK/BACK PAIN. PT HAS BEEN SEEN FOR THIS COMPLAINT MULTIPLE TIMES. PT SMOKED METH EARLIER TODAY. PT HAS NO OTHER NEEDS. WAITING FOR ERP TO EVALUATE
--- NOTE | 2021-01-10 19:36 | NUR ---
PT SPOKE TO THIS RN AND SAID HE WANTED TO LEAVE. PT ADVISED TO WAIT FOR MD. PT REFUSING. PT IS AAOX4 AND AMBULATORY. PT WALKED OUT OF ER. MD ADVISED
== END 2021-01-10 19:41 | disposition left against medical advice (07) ==
LOC: ED 19:34
DX: M54.9 Dorsalgia, unspecified (principal); M54.2 Cervicalgia; Z53.29 Procedure and treatment not carried out because of patient's decision for other reasons
CPT/HCPCS: 99281

== ENCOUNTER 2021-01-11 12:22 | Emergency (ER) | payer MEDICAID ==
[~2021-01-11] VITALS: Ht 167.6 cm; Wt 60.2 kg
[2021-01-11 12:47] VITALS: BP 135/86
--- NOTE | 2021-01-11 13:03 | NUR ---
PER PATIENT "MY NECK IS SHAKING TO MUCH" DENIES TRAUMA. ADMITS METH AN HOUR AGO. STATES HE WANTS MEDICATION TO CALM DOWN. PT APPEARS RESTLESS. REFUSING TO WEAR BLOOD PRESSURE CUFF AND REFUSING TO ANSWER MOST QUESTIONS. HR 113 SPO2 96.
--- NOTE | 2021-01-11 13:36 | NUR ---
pt left before d/c paperwork was given with steady gait
== END 2021-01-11 13:38 | disposition home or self-care (01) ==
LOC: ED 13:00
DX: M54.2 Cervicalgia (principal); R00.0 Tachycardia, unspecified
CPT/HCPCS: 99281

== ENCOUNTER 2021-01-11 18:01 | Emergency (ER) | payer MEDICAID ==
[~2021-01-11] VITALS: Ht 167.6 cm; Wt 60.2 kg
[2021-01-11 18:25] VITALS: BP 113/87
--- NOTE | 2021-01-11 19:19 | NUR ---
PT STATES " MY SPINE IS HAVING PROBLEMS". REPORTS HAVING PAIN IN HIS SPINE. PT REPORTS DOING METH A COUPLE HOURS AGO. DENIES HEAD INJURY, HEADACHE. NO DISTAL MOTOR/SENSORY DEFICITS HR 107-PROVIDED WITH WATER AND ENCOURAGED TO DRINK
== END 2021-01-11 19:45 | disposition home or self-care (01) ==
LOC: ED 18:53
DX: M54.2 Cervicalgia (principal); G89.29 Other chronic pain; F15.229 Other stimulant dependence with intoxication, unspecified; Z72.9 Problem related to lifestyle, unspecified
CPT/HCPCS: 99281

== ENCOUNTER 2021-01-16 01:33 | Emergency (ER) | payer MEDICAID ==
[~2021-01-16] VITALS: Ht 167.6 cm; Wt 60.0 kg
[2021-01-16 01:39] VITALS: BP 113/71
--- NOTE | 2021-01-16 01:45 | NUR ---
TOBY RN: PT SEEN BY DR SIMS IN TRIAGE. VERBAL ORDER FOR 600 MG OF MOTRIN PO PER DR SIMS. READ BACK AND VERIFIED.
[2021-01-16] MEDS ORDERED: IBUPROFEN 600 MG TABLET ONE (01:47)
--- NOTE | 2021-01-16 01:49 | NUR ---
DR SIMS AWARE OF VS. PER DR SIMS NO EKG NEEDED.
--- NOTE | 2021-01-16 01:55 | NUR ---
PT IS A&O X4. NO ACUTE DISTRESS. DR SIMS AWARE OF VS. OKAYED FOR DISCHARGE. PT REQUESTING MILK. PT GIVEN WATER AND MILK. PT HAD APPROPRIATE CLOTHING ON FOR WEATHER. PT DISCHARGED PER DR SIMS
[2021-01-16] MEDS ORDERED: IBUPROFEN 600 MG TABLET PO ONE (02:00)
== END 2021-01-16 02:03 | disposition home or self-care (01) ==
LOC: ED 01:57
DX: S16.1XXA Strain of muscle, fascia and tendon at neck level, initial encounter (principal); F15.20 Other stimulant dependence, uncomplicated; Z72.9 Problem related to lifestyle, unspecified; F17.200 Nicotine dependence, unspecified, uncomplicated; X58.XXXA Exposure to other specified factors, initial encounter; Y93.89 Activity, other specified; Y92.89 Other specified places as the place of occurrence of the external cause; Y99.8 Other external cause status
CPT/HCPCS: 99282

== ENCOUNTER 2021-01-16 18:28 | Emergency (ER) | payer MEDICAID ==
[~2021-01-16] VITALS: Ht 165.1 cm; Wt 59.6 kg
[2021-01-16 18:37] VITALS: BP 122/70
--- NOTE | 2021-01-16 20:32 | NUR ---
PT ESCORTED OUT OF LOBBY BY SECURITY FOR BAD BEHAVIOR.
== END 2021-01-16 20:34 | disposition left against medical advice (07) ==
LOC: ED 19:00
DX: R51.9 Headache, unspecified (principal); M54.2 Cervicalgia; Z53.21 Procedure and treatment not carried out due to patient leaving prior to being seen by health care provider

== ENCOUNTER 2021-01-17 11:57 | Emergency (ER) | payer MEDICAID ==
[~2021-01-17] VITALS: Ht 172.7 cm; Wt 62.0 kg
--- NOTE | 2021-01-17 12:08 | NUR ---
NO ANSWER X2
[2021-01-17 12:17] VITALS: BP 145/94
--- NOTE | 2021-01-17 13:05 | NUR ---
TASK RN: PT TO ROOM 19 W/ C/O NECK PAIN. WAS SEEN IN ED YESTERDAY FOR SAME. REQUESTIONS "MEDS TO CALM ME DOWN". PT SLEEPING ON [place]. HOLLIE.
--- NOTE | 2021-01-17 13:30 | NUR ---
RECEIVED UPDATE FROM JUANITO RN, PT OBSEVED TO BE SLEEPING. NO DISTRESS NOTED.
[2021-01-17] MEDS ORDERED: IBUPROFEN 800 MG TABLET PO ONE (14:00)
--- NOTE | 2021-01-17 14:22 | NUR ---
DURING D/C PT STANDING AND STARTED PLACING HAND SOAP INTO HIS HAIR. HE ALSO HAD INAPPROPRIATE TIMES.
== END 2021-01-17 14:24 | disposition home or self-care (01) ==
LOC: ED 12:54
DX: S16.1XXA Strain of muscle, fascia and tendon at neck level, initial encounter (principal); F15.20 Other stimulant dependence, uncomplicated; M54.5 Low back pain; Z72.9 Problem related to lifestyle, unspecified; X58.XXXA Exposure to other specified factors, initial encounter; Y93.89 Activity, other specified; Y92.89 Other specified places as the place of occurrence of the external cause; Y99.8 Other external cause status
CPT/HCPCS: 99282; 99285

== ENCOUNTER 2021-01-17 19:53 | Emergency (ER) | payer MEDICAID ==
[~2021-01-17] VITALS: Ht 167.6 cm; Wt 61.4 kg
[2021-01-17 20:07] VITALS: BP 128/75
--- NOTE | 2021-01-17 20:41 | NUR ---
PT NIL FOR PROVIDER TO SEE
--- NOTE | 2021-01-17 20:55 | NUR ---
PT NOT IN LOBBY AT THIS TIME
--- NOTE | 2021-01-17 21:00 | NUR ---
PT NOT IN LOBBY AT THIS TIME
== END 2021-01-17 21:02 | disposition left against medical advice (07) ==
LOC: ED 20:00
DX: M54.2 Cervicalgia (principal); Z53.21 Procedure and treatment not carried out due to patient leaving prior to being seen by health care provider

== ENCOUNTER 2021-01-19 14:38 | Emergency (ER) | payer MEDICAID ==
[~2021-01-19] VITALS: Ht 167.6 cm; Wt 61.5 kg
--- NOTE | 2021-01-19 14:50 | NUR ---
BIOTECHNICIAN. NO ANSWER X1 TO TRIAGE FROM LOBBY
--- NOTE | 2021-01-19 15:00 | NUR ---
E COMMERCE WEB DEVELOPER. NO ANSWER X2 TO TRIAGE AT THIS TIME
[2021-01-19 15:07] VITALS: BP 133/65
--- NOTE | 2021-01-19 15:26 | NUR ---
PT CURRENTLY WALKING AROUND IN THE LOBBY WITHOUT C-COLLAR ON. C-COLLAR IS ON THE FLOOR IN THE MIDDLE OF THE WAITING ROOM. PT WAS INSTRUCTED TO WEAR C-COLLAR AND REMAIN SEATED IN WHEELCHAIR UNTIL NAME WAS CALLED TO BE ROOMED.
--- NOTE | 2021-01-19 15:31 | NUR ---
oracle reports developer: pt from lobby to room 40
[2021-01-19] MEDS ORDERED: hydrOXyzine 50MG TABLET ONE (15:55)
[2021-01-19] MEDS ORDERED: hydrOXyzine 50MG TABLET PO PRN (16:00)
== END 2021-01-19 16:18 | disposition home or self-care (01) ==
LOC: ED 16:12
DX: F41.1 Generalized anxiety disorder (principal); F15.10 Other stimulant abuse, uncomplicated
CPT/HCPCS: 99283

== ENCOUNTER 2021-01-19 22:14 | Emergency (ER) | payer MEDICAID ==
[~2021-01-19] VITALS: Ht 167.6 cm; Wt 60.0 kg
[2021-01-19 22:18] VITALS: BP 143/80
== END 2021-01-19 22:30 | disposition home or self-care (01) ==
LOC: ED 22:24
DX: M54.2 Cervicalgia (principal); G89.29 Other chronic pain; F17.200 Nicotine dependence, unspecified, uncomplicated; Z59.0 Homelessness
CPT/HCPCS: 99281

== ENCOUNTER 2021-01-20 20:53 | Emergency (ER) | payer MEDICAID ==
[~2021-01-20] VITALS: Ht 167.6 cm; Wt 60.0 kg
[2021-01-20 21:12] VITALS: BP 122/80
--- NOTE | 2021-01-20 21:17 | NUR ---
NON-COMPLIANT WITH ORAL TEMP IN TRIAGE
--- NOTE | 2021-01-20 21:21 | NUR ---
PT SEEN IN TRIAGE BY DR MEDINA. PT CLEARED FOR DISCHARGE AND DC'D FROM TRIAGE.
== END 2021-01-20 21:21 | disposition home or self-care (01) ==
LOC: ED 21:18
DX: F39 Unspecified mood [affective] disorder (principal); M54.2 Cervicalgia; F19.10 Other psychoactive substance abuse, uncomplicated; G89.29 Other chronic pain
CPT/HCPCS: 99281

== ENCOUNTER 2021-01-22 00:26 | Emergency (ER) | payer MEDICAID ==
[~2021-01-22] VITALS: Ht 165.1 cm; Wt 60.0 kg
[2021-01-22 00:37] VITALS: BP 115/73
== END 2021-01-22 00:57 | disposition home or self-care (01) ==
LOC: ED 00:50
DX: M54.2 Cervicalgia (principal)
CPT/HCPCS: 99281

== ENCOUNTER 2021-01-24 11:29 | Emergency (ER) | payer MEDICAID ==
[~2021-01-24] VITALS: Ht 167.6 cm; Wt 61.7 kg
[2021-01-24 11:35] VITALS: BP 131/74
--- NOTE | 2021-01-24 11:55 | NUR ---
PT STATING HE NEEDS ANXIETY MEDICATION AND FOOD BECAUSE HE SMOKED TOO MUCH METH. PT FEEL ASLEEP WHILE THIS RN WAS ASKING QUESTIONS. EVEN AND UNLABORED RESPIRATIONS. HOLLIE.
--- NOTE | 2021-01-24 11:58 | NUR ---
PT AWAKE. UP TO BATHROOM WITH STEADY GAIT.
--- NOTE | 2021-01-24 12:07 | NUR ---
PT WALKING DOWN [address] STATING HE IS CHECKING OUT AND DOESN'T WANT TO BE SEEN. PT LEFT WITH STEADY GAIT AND ALL BELONGINGS.
== END 2021-01-24 12:18 | disposition left against medical advice (07) ==
LOC: ED 12:12
DX: Z53.21 Procedure and treatment not carried out due to patient leaving prior to being seen by health care provider (principal)

== ENCOUNTER 2021-03-01 16:22 | Emergency (ER) | payer MEDICAID ==
[~2021-03-01] VITALS: Ht 167.6 cm; Wt 64.3 kg
[2021-03-01 16:28] VITALS: BP 113/78
--- NOTE | 2021-03-01 17:24 | NUR ---
ALL RESULTS ARE BACK AT THIS TIME. CHART UP FOR RECHECK.
== END 2021-03-01 17:48 | disposition home or self-care (01) ==
LOC: ED 16:56
DX: R07.89 Other chest pain (principal); R94.31 Abnormal electrocardiogram [ECG] [EKG]
CPT/HCPCS: 71045; 93005; 99283

== ENCOUNTER 2021-03-01 21:28 | Emergency (ER) | payer MEDICAID ==
[~2021-03-01] VITALS: Ht 167.6 cm; Wt 56.8 kg
--- NOTE | 2021-03-02 00:55 | NUR ---
PT. TO ROOM FROM LOBBY.
[2021-03-02 01:31] VITALS: BP 148/100
== END 2021-03-02 01:48 | disposition home or self-care (01) ==
LOC: ED 21:29
DX: R07.89 Other chest pain (principal); F17.210 Nicotine dependence, cigarettes, uncomplicated; F15.151 Other stimulant abuse with stimulant-induced psychotic disorder with hallucinations; Z72.9 Problem related to lifestyle, unspecified
CPT/HCPCS: 93005; 99406

== ENCOUNTER 2021-03-02 16:07 | Emergency (ER) | payer MEDICAID ==
[~2021-03-02] VITALS: Ht 167.6 cm; Wt 67.2 kg
--- NOTE | 2021-03-02 17:05 | NUR ---
TO BRIDGET FROM LOBBY
[2021-03-02 17:43] VITALS: BP 121/65
== END 2021-03-02 17:46 | disposition home or self-care (01) ==
LOC: ED 17:13
DX: R07.2 Precordial pain (principal); R00.0 Tachycardia, unspecified; F17.200 Nicotine dependence, unspecified, uncomplicated
CPT/HCPCS: 93005; 99283

== ENCOUNTER 2021-03-03 18:45 | Emergency (ER) | payer MEDICAID ==
[~2021-03-03] VITALS: Ht 167.6 cm; Wt 66.2 kg
[2021-03-03 18:50] VITALS: BP 137/77
--- NOTE | 2021-03-03 19:32 | NUR ---
network cable installer: Pt walked back from lobby to room at this time. Steady upon ambulation.
== END 2021-03-03 19:51 | disposition home or self-care (01) ==
LOC: ED 18:51
DX: F41.1 Generalized anxiety disorder (principal); F15.10 Other stimulant abuse, uncomplicated; Z76.0 Encounter for issue of repeat prescription
CPT/HCPCS: 99281

== ENCOUNTER 2021-03-06 13:06 | Emergency (ER) | payer MEDICAID ==
[~2021-03-06] VITALS: Ht 167.6 cm; Wt 69.5 kg
[2021-03-06 13:14] VITALS: BP 121/77
[2021-03-06 14:48] LABS: BASOPHILS % (AUTO) 1 % (0-1); EOSINOPHILS % (AUTO) 1 % (1-7); LYMPHOCYTES % (AUTO) 24 % (22-44); MEAN CORPUSCULAR HEMOGLOBIN 30.5 pg (27.5-34.5); MEAN CORPUSCULAR HGB CONC 35.5 g/dL (33.2-36.2); MEAN PLATELET VOLUME 6.6 fL (7.4-10.4); MONOCYTES % (AUTO) 8 % (2-9); NEUTROPHILS % (AUTO) 67 % (42-75); PLATELET COUNT 285 x10^3/uL (130-400); RED BLOOD COUNT 5.22 x10^6/uL (4.38-5.82); RED CELL DISTRIBUTION WIDTH 13.5 % (9.4-14.8)
[2021-03-06 14:57] LABS: ALBUMIN 4.1 g/dL (3.4-5.0); ANION GAP 9 mmol/L (5-15); CALCIUM 9.1 mg/dL (8.5-10.1); CHLORIDE 109 mmol/L (98-107); CREATININE 0.83 mg/dL (0.7-1.3)
[2021-03-06 15:01] LABS: TROPONIN I < 0.015 ng/mL (0.000-0.045)
--- NOTE | 2021-03-06 16:30 | NUR ---
na x 1
--- NOTE | 2021-03-06 16:59 | NUR ---
NAX2
--- NOTE | 2021-03-06 17:22 | NUR ---
nilx3
== END 2021-03-06 17:28 | disposition left against medical advice (07) ==
LOC: ED 13:17
DX: R07.89 Other chest pain (principal); R00.0 Tachycardia, unspecified
CPT/HCPCS: 36415; 71045; 80048; 82040; 84484; 85025; 93005; 99285

== ENCOUNTER 2021-03-08 18:16 | Emergency (ER) | payer MEDICAID ==
[~2021-03-08] VITALS: Ht 167.6 cm; Wt 65.1 kg
[2021-03-08 18:19] VITALS: BP 125/79
--- NOTE | 2021-03-08 18:22 | NUR ---
UNDERWATER WELDER: EKG COMPLETED IN TRIAGE
== END 2021-03-08 20:17 | disposition home or self-care (01) ==
LOC: ED 19:24
DX: R07.2 Precordial pain (principal); R00.0 Tachycardia, unspecified; M54.2 Cervicalgia
CPT/HCPCS: 71045; 93005; 99283

== ENCOUNTER 2021-03-09 11:10 | Emergency (ER) | payer MEDICAID ==
[~2021-03-09] VITALS: Ht 167.6 cm; Wt 64.3 kg
[2021-03-09 12:00] VITALS: BP 131/78
--- NOTE | 2021-03-09 13:56 | NUR ---
PT TO ROOM FROM LOBBY, PT STATES HE HAS "POISON INSIDE OF ME"
--- NOTE | 2021-03-09 14:00 | NUR ---
MED STUDENT AT BS
--- NOTE | 2021-03-09 14:20 | NUR ---
PT NEEDS CONSTANT REDIRECTION. PT WILL NOT STAY IN ROOM, CONTINUES WASHING BODY IN HAND SANITZER
--- NOTE | 2021-03-09 15:08 | NUR ---
Patient given discharge instructions and they have confirmed that they understand the instructions. Patient ambulatory with steady gait.
== END 2021-03-09 15:09 | disposition home or self-care (01) ==
LOC: ED 15:00
DX: M79.672 Pain in left foot (principal); M79.671 Pain in right foot; F17.200 Nicotine dependence, unspecified, uncomplicated
CPT/HCPCS: 99281

== ENCOUNTER 2021-03-10 02:55 | Emergency (ER) | payer MEDICAID ==
[~2021-03-10] VITALS: Ht 167.6 cm; Wt 63.8 kg
[2021-03-10 02:59] VITALS: BP 108/75
== END 2021-03-10 03:22 | disposition home or self-care (01) ==
LOC: ED 03:00
DX: F15.10 Other stimulant abuse, uncomplicated (principal); Z72.9 Problem related to lifestyle, unspecified; R00.0 Tachycardia, unspecified; F17.210 Nicotine dependence, cigarettes, uncomplicated
CPT/HCPCS: 99281; 99283; 99406

== ENCOUNTER 2021-03-11 20:53 | Emergency (ER) | payer MEDICAID ==
[~2021-03-11] VITALS: Ht 167.6 cm; Wt 70.0 kg
[2021-03-11 20:59] VITALS: BP 131/77
--- NOTE | 2021-03-11 21:19 | NUR ---
OBIEE OBIA SOLUTION ARCHITECT: CONTACTED BY SECURITY THAT PT IS WANDERING THE PREMISIS. SECURITY OBSERVED PT URINATE IN AMBULANCE BAY. PT ESCORTED OF PROPERTY BY SECURITY.
== END 2021-03-11 21:31 ==
LOC: ED 21:00
DX: L29.9 Pruritus, unspecified (principal); Z53.21 Procedure and treatment not carried out due to patient leaving prior to being seen by health care provider

== ENCOUNTER 2021-03-12 16:34 | Emergency (ER) | payer MEDICAID ==
[~2021-03-12] VITALS: Ht 167.6 cm; Wt 70.0 kg
[2021-03-12 16:37] VITALS: BP 119/69
--- NOTE | 2021-03-12 16:40 | NUR ---
JUSTIN RN: PT BREEZY LANDIN REQUESTING RUBBING ALCOHOL. NO MEDICAL COMPLAINTS AT THIS TIME. VS STABLE. PT DENIES SI, HI. REPORT GIVEN TO JORDAN MAN.
--- NOTE | 2021-03-12 17:14 | NUR ---
PATIENT NOTED WITH ALCOHOL SWABS SURROUNDING HIM IN HIS ROOM. ED MD TO CHECK SOME LABS
[2021-03-12 17:55] LABS: BASOPHILS % (AUTO) 1 % (0-1); EOSINOPHILS % (AUTO) 2 % (1-7); LYMPHOCYTES % (AUTO) 22 % (22-44); MEAN CORPUSCULAR HEMOGLOBIN 29.8 pg (27.5-34.5); MEAN CORPUSCULAR HGB CONC 34.2 g/dL (33.2-36.2); MEAN PLATELET VOLUME 6.7 fL (7.4-10.4); MONOCYTES % (AUTO) 10 % (2-9); NEUTROPHILS % (AUTO) 67 % (42-75); PLATELET COUNT 258 x10^3/uL (130-400); RED BLOOD COUNT 5.21 x10^6/uL (4.38-5.82); RED CELL DISTRIBUTION WIDTH 13.4 % (9.4-14.8)
[2021-03-12 18:08] LABS: ANION GAP 5 mmol/L (5-15); CHLORIDE 107 mmol/L (98-107); CREATININE 1.89 mg/dL (0.7-1.3)
== END 2021-03-12 19:18 | disposition home or self-care (01) ==
LOC: ED 17:04
DX: F15.150 Other stimulant abuse with stimulant-induced psychotic disorder with delusions (principal); N28.9 Disorder of kidney and ureter, unspecified; F17.200 Nicotine dependence, unspecified, uncomplicated
CPT/HCPCS: 36415; 80048; 85025; 99283

== ENCOUNTER 2021-03-14 15:39 | Emergency (ER) | payer MEDICAID ==
[~2021-03-14] VITALS: Ht 167.6 cm; Wt 66.0 kg
[2021-03-14 15:43] VITALS: BP 134/71
--- NOTE | 2021-03-14 16:14 | NUR ---
PT FOUND GOING THROUGH CABINENTS, STATES I NEED ALCOHOL SWABS TO CLEAN THE TOXINS OFF MY BODY. PT TAKEN TO SHOWER TO SHOWER.
== END 2021-03-14 17:41 | disposition home or self-care (01) ==
LOC: ED 17:00
DX: R07.89 Other chest pain (principal)
CPT/HCPCS: 71045; 93005; 99283

== ENCOUNTER 2021-03-14 23:22 | Emergency (ER) | payer MEDICAID ==
[~2021-03-14] VITALS: Ht 160 cm; Wt 67.0 kg
[2021-03-14 23:23] VITALS: BP 122/80
--- NOTE | 2021-03-14 23:26 | NUR ---
INITIAL PT CONTACT. PT THIAGO C/O CHEST PAIN, 0.5/. "THE PAIN ISNT BAD NOW, CAN I JUST HAVE A SANDWICH". PT SEEN A FEW HOURS AGO HERE FOR SAME, SITTING UPRIGHT ON HO[place]IE PINA VSS. CALL LIGHT AND BELONGINGS WITHIN REACH
--- NOTE | 2021-03-14 23:35 | NUR ---
Patient given discharge instructions and they have confirmed that they understand the instructions. Patient ambulatory with steady gait.
== END 2021-03-14 23:49 | disposition home or self-care (01) ==
LOC: ED 23:27
DX: R07.89 Other chest pain (principal); F17.210 Nicotine dependence, cigarettes, uncomplicated; R94.31 Abnormal electrocardiogram [ECG] [EKG]
CPT/HCPCS: 99406

== ENCOUNTER 2021-03-15 18:15 | Emergency (ER) | payer MEDICAID ==
[~2021-03-15] VITALS: Ht 167.6 cm; Wt 66.9 kg
[2021-03-15 18:26] VITALS: BP 120/104
== END 2021-03-15 20:03 | disposition home or self-care (01) ==
LOC: ED 18:45
DX: M54.2 Cervicalgia (principal); F15.10 Other stimulant abuse, uncomplicated; Z72.9 Problem related to lifestyle, unspecified; F17.210 Nicotine dependence, cigarettes, uncomplicated
CPT/HCPCS: 99281; 99406

== ENCOUNTER 2021-03-16 08:13 | Emergency (ER) | payer MEDICAID ==
[~2021-03-16] VITALS: Ht 167.6 cm; Wt 70.0 kg
--- NOTE | 2021-03-16 08:20 | NUR ---
ZAIDA DAS FROM [facility] FOR GENERALIZED PAIN AND MEDICATION REFILL.
[2021-03-16 08:21] VITALS: BP 102/63
--- NOTE | 2021-03-16 08:24 | NUR ---
Patient given discharge instructions and they have confirmed that they understand the instructions. Patient ambulatory with steady gait.
== END 2021-03-16 08:26 | disposition home or self-care (01) ==
LOC: ED 08:20
DX: F41.1 Generalized anxiety disorder (principal); F17.200 Nicotine dependence, unspecified, uncomplicated
CPT/HCPCS: 99283

== ENCOUNTER 2021-03-16 11:43 | Emergency (ER) | payer MEDICAID ==
[~2021-03-16] VITALS: Ht 167.6 cm; Wt 54.8 kg
[2021-03-16 12:36] VITALS: BP 121/77
--- NOTE | 2021-03-16 13:36 | NUR ---
SANDWICH HAND: CALLED PT NO ANSWER
--- NOTE | 2021-03-16 13:43 | NUR ---
pt seen by staff on their lunch break off property. Pt eloped.
== END 2021-03-16 13:45 | disposition left against medical advice (07) ==
LOC: ED 13:34
DX: R07.89 Other chest pain (principal); F10.129 Alcohol abuse with intoxication, unspecified; Y90.0 Blood alcohol level of less than 20 mg/100 ml
CPT/HCPCS: 93005; 99283

== ENCOUNTER 2021-03-18 14:11 | Emergency (ER) | payer MEDICAID ==
[~2021-03-18] VITALS: Ht 167.6 cm; Wt 66.0 kg
[2021-03-18 14:33] VITALS: BP 130/64
[2021-03-18] MEDS ORDERED: DIPHENHYDRAMINE 50 MG CAPSULE ONE (16:24)
[2021-03-18] MEDS ORDERED: DIPHENHYDRAMINE 25 MG CAPSULE ONE (16:28)
--- NOTE | 2021-03-18 16:28 | NUR ---
medicated per emar for anxiety at 05/05. patient to wait in triage room 2 for med re-assessment
[2021-03-18] MEDS ORDERED: DIPHENHYDRAMINE 25 MG CAPSULE PO ONE (16:30)
== END 2021-03-18 17:08 | disposition home or self-care (01) ==
LOC: ED 14:15
DX: R07.89 Other chest pain (principal); F41.1 Generalized anxiety disorder
CPT/HCPCS: 99282; Q0163

== ENCOUNTER 2021-03-18 17:36 | Emergency (ER) | payer MEDICAID | END 2021-03-18 18:32 | disposition left against medical advice (07) | LOC: ED 18:26 | DX: Z53.21 Procedure and treatment not carried out due to patient leaving prior to being seen by health care provider (principal); R94.31 Abnormal electrocardiogram [ECG] [EKG] | CPT/HCPCS: 93005 ==

== ENCOUNTER 2021-03-19 06:46 | Emergency (ER) | payer MEDICAID ==
[2021-03-19 06:47] VITALS: BP 127/102
--- NOTE | 2021-03-19 07:10 | NUR ---
Patient given discharge instructions and they have confirmed that they understand the instructions. Patient ambulatory with steady gait.
== END 2021-03-19 07:11 | disposition home or self-care (01) ==
LOC: ED 06:55
DX: R07.89 Other chest pain (principal); R94.31 Abnormal electrocardiogram [ECG] [EKG]
CPT/HCPCS: 93005; 99283

== ENCOUNTER 2021-03-19 19:29 | Emergency (ER) | payer MEDICAID ==
--- NOTE | 2021-03-19 19:33 | NUR ---
NIL X1 [id number]
--- NOTE | 2021-03-19 19:52 | NUR ---
PER SCREENER, PT IS BACK IN LOBBY, SITTING IN CORNER C BAG OF FAST FOOD.
== END 2021-03-19 21:00 ==
LOC: ED 19:50
DX: R07.9 Chest pain, unspecified (principal); Z53.21 Procedure and treatment not carried out due to patient leaving prior to being seen by health care provider

== ENCOUNTER 2021-03-20 09:59 | Emergency (ER) | payer MEDICAID ==
[~2021-03-20] VITALS: Ht 167.6 cm; Wt 66.6 kg
[2021-03-20 10:03] VITALS: BP 115/70
== END 2021-03-20 10:41 | disposition home or self-care (01) ==
LOC: ED 10:35
DX: F45.0 Somatization disorder (principal); Z76.5 Malingerer [conscious simulation]; Z91.19 Patient's noncompliance with other medical treatment and regimen
CPT/HCPCS: 99281

== ENCOUNTER 2021-03-21 15:32 | Emergency (ER) | payer MEDICAID ==
[~2021-03-21] VITALS: Ht 167.6 cm; Wt 68.3 kg
[2021-03-21 15:36] VITALS: BP 108/61
[2021-03-21] MEDS ORDERED: ASPIRIN 81 MG TABLET CHEW PO ONE (16:30)
== END 2021-03-21 16:16 | disposition home or self-care (01) ==
LOC: ED 16:10
DX: R07.89 Other chest pain (principal); F17.210 Nicotine dependence, cigarettes, uncomplicated
CPT/HCPCS: 99283; 99406

== ENCOUNTER 2021-03-24 00:44 | Emergency (ER) | payer MEDICAID ==
[~2021-03-24] VITALS: Ht 167.6 cm; Wt 69.3 kg
[2021-03-24 00:50] VITALS: BP 102/68
--- NOTE | 2021-03-24 01:50 | NUR ---
PT. WAS SEEN BY PROVIDER IN TRIAGE. PT. D/C FROM TRIAGE.
== END 2021-03-24 01:52 ==
LOC: ED 01:00
DX: R07.2 Precordial pain (principal); G89.29 Other chronic pain; R94.31 Abnormal electrocardiogram [ECG] [EKG]
CPT/HCPCS: 93005; 99283

== ENCOUNTER 2021-04-26 02:57 | Emergency (ER) | payer MEDICAID ==
[~2021-04-26] VITALS: Ht 160 cm; Wt 60.0 kg
[2021-04-26 02:59] VITALS: BP 106/51
--- NOTE | 2021-04-26 02:59 | NUR ---
INITIAL PT CONTACT. BIBA C/O BEING COLD AND 1/10 CHEST PAIN, SEEN FOR SAME EARLIER TODAY. PT IN NAD, VSS. DEMANDING "GIVE ME A BLANKET RIGHT NOW!" UPON ARRIVAL. SITTING UPRIGHT. AWAITING ERP
--- NOTE | 2021-04-26 03:36 | NUR ---
Patient given discharge instructions. Patient ambulatory with steady gait. NAD, all questions answered appropriately, denies additional needs at this time. No personal belongings left in room after discharge.
== END 2021-04-26 03:38 | disposition home or self-care (01) ==
LOC: ED 03:32
DX: Z00.00 Encounter for general adult medical examination without abnormal findings (principal); Z72.9 Problem related to lifestyle, unspecified
CPT/HCPCS: 99283

== ENCOUNTER 2021-04-26 20:44 | Emergency (ER) | payer MEDICAID ==
[2021-04-26] MEDS ORDERED: FLUORESCEIN OPHTHALMIC 1 MG STRIP ONE (20:55)
[2021-04-26 21:15] VITALS: BP 119/64
== END 2021-04-26 21:17 | disposition home or self-care (01) ==
LOC: ED 21:11
DX: H53.123 Transient visual loss, bilateral (principal); F17.200 Nicotine dependence, unspecified, uncomplicated
CPT/HCPCS: 99283

== ENCOUNTER 2021-04-28 17:46 | Emergency (ER) | payer MEDICAID ==
[~2021-04-28] VITALS: Ht 167.6 cm; Wt 69.9 kg
[2021-04-28 18:01] VITALS: BP 113/72
--- NOTE | 2021-04-28 20:06 | NUR ---
PT TO ROOM AT THIS TIME.
--- NOTE | 2021-04-28 20:54 | NUR ---
NIL X 1 @ 2002/NIL X 2 @ 2039/ [id number]
== END 2021-04-28 20:56 | disposition left against medical advice (07) ==
LOC: ED 18:16
DX: R07.89 Other chest pain (principal); Z53.21 Procedure and treatment not carried out due to patient leaving prior to being seen by health care provider
CPT/HCPCS: 93005

== ENCOUNTER 2021-04-29 02:43 | Emergency (ER) | payer MEDICAID ==
[~2021-04-29] VITALS: Ht 157.5 cm; Wt 70.1 kg
[2021-04-29 02:44] VITALS: BP 125/79
--- NOTE | 2021-04-29 03:01 | NUR ---
PT ELOPED FROM ED, UNABLE TO FIND PT WHEN CALLED FROM LOBBY.
== END 2021-04-29 03:03 | disposition left against medical advice (07) ==
LOC: ED 02:57
DX: R51.9 Headache, unspecified (principal); Z53.21 Procedure and treatment not carried out due to patient leaving prior to being seen by health care provider
CPT/HCPCS: 99283